=== PATIENT | male | born 2000 | race Hispanic/Latino ===

== ENCOUNTER 2023-10-18 16:27 | Emergency (ER) | payer OTHER ==
[~2023-10-18] VITALS: Ht 177.8 cm; Wt 122.5 kg
[~2023-10-18 16:27] MED LIST: AMOX1TAB16 PO; CETI10CA5 PO
[2023-10-18 17:32] VITALS: BP 139/61; PULSE 81; RESP 18
[2023-10-18] MEDS: KETOROLAC 15MG/ML VIAL (15MG/ML) IM ONE (19:30)
== END 2023-10-18 19:57 | disposition home or self-care (01) ==
LOC: EDH 16:27
DX: S93.492A Sprain of other ligament of left ankle, initial encounter (principal); Z79.899 Other long term (current) drug therapy; Z98.890 Other specified postprocedural states; W18.39XA Other fall on same level, initial encounter; Y93.89 Activity, other specified; Y92.89 Other specified places as the place of occurrence of the external cause; Y99.8 Other external cause status
CPT/HCPCS: 99284; 73600; 73630; 29125; 96372; J1885

== ENCOUNTER 2024-03-13 09:51 | Emergency (ER) | payer SELFPAY ==
[~2024-03-13] VITALS: Ht 177.8 cm; Wt 108.9 kg
[2024-03-13 10:46] LABS: BASOPHILS # (AUTO) 0.05 K/uL (0.00-0.20); BASOPHILS % (AUTO) 0.3 % (0.0-5.0); EOSINOPHILS # (AUTO) 0.22 K/uL (0.00-0.70); EOSINOPHILS % (AUTO) 1.5 % (0.0-8.0); HEMATOCRIT 47.3 % (42-54); IMMATURE GRANULOCYTE ABSOLUTE 0.04 K/uL (0-1); LYMPHOCYTES # (AUTO) 1.5 K/uL (1.0-4.8); LYMPHOCYTES % (AUTO) 9.6 % (21.0-51.0); MEAN CORPUSCULAR HEMOGLOBIN 29.2 pg (27.0-33.0); MEAN CORPUSCULAR HGB CONC 34.7 g/dL (32.0-36.0); MEAN CORPUSCULAR VOLUME 84.2 fL (79-99); MONOCYTES # (AUTO) 0.9 K/uL (0.1-1.0); MONOCYTES % (AUTO) 5.8 % (3.0-13.0); NEUTROPHILS # (AUTO) 12.4 K/uL (1.8-7.7); NEUTROPHILS % (AUTO) 82.5 % (40.0-77.0); PLATELET COUNT (AUTO) 292 K/uL (130-400); RED BLOOD CELL COUNT(AUTO) 5.62 MIL/uL (4.50-6.20); RED CELL DISTRIBUTION WIDTH 12.4 % (11.0-15.5); WHITE BLOOD COUNT (AUTO) 15.1 K/uL (4.8-10.8)
[2024-03-13 10:56] LABS: ALBUMIN 4.2 g/dL (3.5-5.0); BILIRUBIN,DIRECT 0.1 mg/dL (0.0-0.3); BILIRUBIN,TOTAL 0.8 mg/dL (0.2-1.0); TOTAL PROTEIN, SERUM 8.2 g/dL (6.0-8.3)
[2024-03-13] MEDS: FAMOTIDINE 20MG VIAL IV ONE (10:58)
[2024-03-13] MEDS: 0.9%NACL 1000ML 1,000 ML IV ONE (10:58)
[2024-03-13] MEDS: ondanSETRON 4MG INJ IVP ONE (10:58)
[2024-03-13] MEDS: ketOROlac 15MG/ML VIAL (15MG/ML) IV ONE (10:58)
[2024-03-13 11:08] LABS: APPEARANCE,URINE CLEAR (CLEAR); BILIRUBIN,URINE NEGATIVE (NEGATIVE); COLOR,URINE LIGHT-YELLOW (YELLOW); GLUCOSE, URINE (UA) NEGATIVE (NEGATIVE); KETONES,URINE NEGATIVE (NEGATIVE); LEUKOCYTE ESTERASE ,URINE NEGATIVE Leu/uL (NEGATIVE); NITRATE,URINE NEGATIVE (NEGATIVE); OCCULT BLOOD,URINE NEGATIVE (NEGATIVE); PROTEIN,URINE 10 mg/dL (NEGATIVE); UROBILINOGEN,URINE 0.2 mg/dL (0.2-1.0)
[2024-03-13] MEDS: morPHINE 2 MG SYG IVP ONE (11:13)
[2024-03-13 11:17] LABS: ADD UA MICROSCOPIC YES
[2024-03-13 11:32] LABS: MUCUS,URINE RARE LPF (None Seen); RBC,URINE 0-1 /HPF (0-1); WBC,URINE 0-1 /HPF (0-1)
[2024-03-13] MEDS ORDERED: FAMO-136 PO (13:46)
[2024-03-13] MEDS ORDERED: ONDA-243 PO (13:46)
[2024-03-13] MEDS ORDERED: METR375C2 PO (13:46)
[2024-03-13 14:07] VITALS: BP 112/72; PULSE 70; RESP 20; TEMP 98.1; O2SAT 98
== END 2024-03-13 15:04 | disposition home or self-care (01) ==
LOC: EDH 09:51
DX: K52.9 Noninfective gastroenteritis and colitis, unspecified (principal); Z79.899 Other long term (current) drug therapy; Z98.890 Other specified postprocedural states
CPT/HCPCS: 99285; 74176; 96374; 96375; 96361; 80076; 80048; 85025; 81001; 36415; J3490; J2270; J7030; J2405; J1885